=== PATIENT | female | born 1955 | race Caucasian/White ===

== ENCOUNTER 2023-07-11 17:26 | Emergency (ER) | payer MEDICARE, BC ==
[~2023-07-11] VITALS: Ht 170.2 cm; Wt 102.3 kg
[2023-07-11 18:09] VITALS: BP 222/90; PULSE 79; RESP 16; TEMP 98; O2SAT 98
== END 2023-07-11 20:24 | disposition home or self-care (01) ==
LOC: ER 17:26
DX: S50.02XA Contusion of left elbow, initial encounter (principal); Z88.5 Allergy status to narcotic agent; V19.88XA Pedal cyclist (driver) (passenger) injured in other specified transport accidents, initial encounter; Y93.89 Activity, other specified; Y92.89 Other specified places as the place of occurrence of the external cause; Y99.8 Other external cause status
CPT/HCPCS: 73080; 93005; 99284; A4565